=== PATIENT | male | born 1955 | race African-American/Black ===

== ENCOUNTER 2024-11-21 11:32 | Emergency (ER) | payer OTHER ==
[~2024-11-21] VITALS: Ht 172.7 cm; Wt 76.2 kg
[2024-11-21 12:54] LABS: PLATELET COUNT (AUTO) 250 K/uL (152-348); RED BLOOD CELL COUNT(AUTO) 4.22 MIL/uL (4.06-5.63); RED CELL DISTRIBUTION WIDTH 14.1 % (12.1-16.2); WHITE BLOOD COUNT (AUTO) 4.5 K/uL (3.6-10.2)
[2024-11-21] MEDS ORDERED: ASPIRIN 81 MG TAB.CHEW ONE (12:57)
[2024-11-21] MEDS ORDERED: MAGNESIUM SULFATE/D5W 200 ML ONE (12:57)
[2024-11-21] MEDS ORDERED: CLONIDINE HCL 0.2 MG TABLET ONE ×2 (12:58→13:11)
[2024-11-21] MEDS: ASPIRIN 81 MG TAB.CHEW PO ONE (13:13)
[2024-11-21] MEDS: MAGNESIUM SULFATE 2 GM in IV DEXTROSE 5% 100 ML IV ONE (13:13)
[2024-11-21] MEDS: CLONIDINE HCL 0.2 MG TABLET PO ONE (13:14)
[2024-11-21 13:27] LABS: CREATININE 1.7 mg/dL (0.6-1.3); SODIUM SERUM 140 mmol/L (136-145); UREA NITROGEN, BLOOD 31 mg/dL (7-18)
[2024-11-21 13:32] LABS: ASPARTATE AMINOTRANSFERASE 18 U/L (15-37); TOTAL PROTEIN, SERUM 8.0 g/dL (6.4-8.2)
[2024-11-21 13:38] LABS: *BILIRUBIN,URIN NEGATIVE (NEGATIVE); *BLOOD, URINE NEGATIVE (NEGATIVE); *CLARITY,URINE CLEAR (CLEAR); *COLOR,URINE YELLOW (YELLOW); *KETONES,URINE NEGATIVE (NEGATIVE); *PROTEIN,URINE 1+ (NEGATIVE); *UROBILINOGEN,URINE 0.2 E.U./dl (NORMAL); LEUKOCYTE ESTERASE ,URINE NEGATIVE (NEGATIVE); NITRITE, URINE NEGATIVE (NEGATIVE); UGLUCOSE NEGATIVE (NEGATIVE)
[2024-11-21 14:00] LABS: SQUAMOUS EPITHELIAL CELL,UR FEW /HPF (NONE SEEN)
[2024-11-21] MEDS ORDERED: POTASSIUM BICARBONATE/CIT AC 25 MEQ TABLET.EFF ONE (14:18)
[2024-11-21] MEDS: POTASSIUM BICARBONATE/CIT AC 25 MEQ TABLET.EFF PO ONE (14:30)
[2024-11-21] MEDS ORDERED: CLONIDINE HCL 0.1 MG TABLET ONE (14:47)
[2024-11-21] MEDS: CLONIDINE HCL 0.1 MG TABLET PO ONE (14:49)
[2024-11-21] MEDS ORDERED: NITROGLYCERIN OINT 1 GM PACKET TP ONE (17:23)
[2024-11-21] MEDS ORDERED: METOPROLOL TARTRATE 50 MG TABLET ONE (17:23)
[2024-11-21 17:27] VITALS: BP 161/124; O2SAT 98
[2024-11-21] MEDS: NITROGLYCERIN OINT 1 GM PACKET TP ONE (17:27)
[2024-11-21] MEDS: METOPROLOL TARTRATE 50 MG TABLET PO ONE (17:27)
== END 2024-11-21 17:49 | disposition short-term general hospital (02) ==
LOC: ER 11:32
DX: I10 Essential (primary) hypertension (principal); I48.91 Unspecified atrial fibrillation; R07.9 Chest pain, unspecified
CPT/HCPCS: 99291; 96365; 96366; 80076; 80048; 81001; 83735; 84443; 85025; 85379; 85730; 84484 ×2; 36415; 71045; 93005; J3475 ×2; A4606; A4663